=== PATIENT | male | born 1965 | race American Indian/Alaskan Native ===

== ENCOUNTER 2016-07-29 08:57 | Day surgery (SDC) | payer OTHER ==
--- NOTE | 2016-07-25 08:02 | Anesthesia Consultation ---
Anesthesia Consult and Med Hx Date of service: 07/29/16 - Airway Anesthetic Teeth Evaluation: Good ROM Head & Neck: Adequate (prior trach) Mental/Hyoid Distance: Adequate Mallampati Class: Class III Intubation Access Assessment: Possibly Difficult - Pulmonary Exam CTA: Yes - Cardiac Exam Cardiac Exam: RRR - Pre-Operative Health Status ASA Pre-Surgery Classification: ASA3 Proposed Anesthetic Plan: General - Pulmonary Hx Smoking: No Hx Respiratory Symptoms: No (prior trach 03/2016 after angioedema, now closed) Hx Sleep Apnea: No - Cardiovascular System Hx Hypertension: Yes (FOR 10 YRS) - Central Nervous System CVA: Yes (02/16/16 NO DEFICITS) Hx Psychiatric Problems: No - Endocrine Hx Renal Disease: Yes Hx End Stage Renal Disease: Yes (right permacath, HD T/T/S) - Hematic Hx Anemia: Yes - Other Systems Hx Cancer: No - Additional Comments Anesthesia Medical History Comments: REQUESTED PATIENT NOT GET PROPOFOL AND FENTANYL BECAUSE SHE IS NOT SURE IF THESE DRUGS WERE THE CAUSE OF HIS ANGIOEDEMA.
[~2016-07-29 08:57] MED LIST: ANCEF/STERILE WATER 2 GM/20 ML 2 GM/20 ML SYRINGE IV NR; NACL 0.9% 1000 ML 1,000 ML IV SCH; PEPCID IV NR
[2016-07-29] MEDS ORDERED: XYLOCAINE MPF 2% ONE (10:05)
[2016-07-29] MEDS ORDERED: SUBLIMAZE ONE (10:05)
[2016-07-29] MEDS ORDERED: DIPRIVAN 10 MG/ML IV ONE (10:06)
[2016-07-29] MEDS ORDERED: HEPARIN 10,000 UNITS/10 ML ONE (11:04)
[2016-07-29] MEDS ORDERED: RIFADIN ONE (11:04)
[2016-07-29] MEDS ORDERED: MARCAINE 0.5% INFILTRATI ONE ×2 (11:04→12:12)
[2016-07-29] MEDS ORDERED: NACL ONE (11:04)
[2016-07-29] MEDS ORDERED: NACL 0.9% 500 ML 500 ML ONE (11:04)
[2016-07-29 11:09] LABS: Basophils % (Auto) 0.7 % (0.0-1.8); Eosinophils % (Auto) 3.2 % (0.0-4.3); Hematocrit 37.2 % (35.5-45.6); Mean Corpuscular HGB Conc 32 % (32-34); Mean Corpuscular Hemoglobin 28 pg (28-32); Mean Corpuscular Volume 87 fl (84-94); Platelet Count 148 K/mm3 (140-440); Red Blood Count 4.25 M/mm3 (3.65-5.03); White Blood Count 6.4 K/mm3 (4.5-11.0)
[2016-07-29] MEDS ORDERED: NORMODYNE IV ONE ×2 (11:15→11:16)
[2016-07-29 11:17] LABS: BUN/Creatinine Ratio 5.17; Calcium 10.2 mg/dL (8.4-10.2); Chloride 99.2 mmol/L (98-107); Potassium 4.7 mmol/L (3.6-5.0)
[2016-07-29] MEDS ORDERED: DILAUDID IV PRN (11:17)
[2016-07-29] MEDS ORDERED: ZOFRAN IV PRN (11:17)
[2016-07-29] MEDS ORDERED: AMIDATE IV ONE (11:28)
[2016-07-29] MEDS ORDERED: NEO SYNEPHRINE/NS Syringe(OR USE) IV ONE (11:30)
[2016-07-29] MEDS ORDERED: HEPARIN 10,000 UNITS/10 ML IV ONE (12:12)
[2016-07-29] MEDS ORDERED: NACL 0.9% IR ONE (12:12)
[2016-07-29] MEDS ORDERED: ZOFRAN ONE (12:16)
[2016-07-29] MEDS ORDERED: DECADRON ONE (12:16)
[2016-07-29] MEDS ORDERED: BREVIBLOC IV ONE (12:23)
--- NOTE | 2016-07-29 12:43 | Short Stay Summary ---
Short Stay Documentation Date of service: 07/29/16 Narrative H&P: See H&P - History H&P: obtained from office - Allergies and Medications Current Medications: Allergies acetaminophen Adverse Reaction (Verified 07/23/16 09:02) UPSET STOMACH amlodipine Adverse Reaction (Verified 07/23/16 09:02) Angioedema aspirin Adverse Reaction (Verified 07/23/16 09:02) UPSET STOMACH black pepper Adverse Reaction (Verified 07/23/16 09:02) UPSET STOMACH clonidine Adverse Reaction (Verified 07/23/16 09:02) Angioedema Home Medications Medication Instructions Recorded Confirmed Last Taken Type Sevelamer Carbonate [Renvela] 800 mg PO TIDWM 07/23/16 07/29/16 07/28/16 19:00 History hydrALAZINE [Apresoline TAB] 100 mg PO BID 07/29/16 07/29/16 07/29/16 08:00 History Active Medications Famotidine (Pepcid) 20 mg IV PREOP NR Stop: 07/29/16 23:59 Last Admin: 07/29/16 10:59 Dose: 20 mg Hydromorphone HCl (Dilaudid) 0.5 mg IV Q10MIN PRN PRN Reason: Pain , Severe (7-10) Stop: 07/29/16 15:00 Cefazolin Sodium (Ancef/Sterile Water 2 Gm/20 Ml) 2 gm in 20 mls @ 80 mls/hr IV PREOP NR PRN Reason: Protocol Stop: 07/29/16 15:00 Sodium Chloride (Nacl 0.9% 1000 Ml) 1,000 mls @ 42 mls/hr IV DIRECT ANGELLA Last Admin: 07/29/16 10:59 Dose: 42 mls/hr - Brief post op/procedure progress note Date of procedure: 07/29/16 Pre-op diagnosis: End-Stage Renal Disease Post-op diagnosis: same Procedure: Creation of Left Arm Brachiocephalic Arteriovenous Fistula Anesthesia: KANEA Surgeon: AGUSTÍN VALENCIA Estimated blood loss: minimal Pathology: none Condition: stable - Disposition Condition at discharge: Good Disposition: DC-01 TO HOME OR SELFCARE Short Stay Discharge Plan Activity: other (no heavy lifting with left arm) Wound: open to air, keep clean and dry, other (okay to wash the wound with soap and water but do not soak in water) Follow up with: AGUSTÍN VALENCIA MD [Staff Physician] - 14 Days Prescriptions: oxyCODONE [Roxicodone TAB] 5 mg PO Q6HR PRN #40 tablet PRN Reason: Pain
--- NOTE | 2016-07-29 12:45 | Operative Report ---
Operative Report Operative Report: Date of procedure: 07/29/2016 Pre-operative diagnosis: End-Stage Renal Disease Post-operative diagnosis: End-Stage Renal Disease Procedure(s): Creation of Left Brachial Artery to Cephalic Vein Arteriovenous Fistula Surgeon: Ashish Funk MD Set Up / Operator: None Anesthesia: Gen. endotracheal anesthesia EBL: Minimal Counts: Correct Complications: None Condition: Stable Findings: Successful creation of left brachiocephalic arteriovenous fistula with excellent thrill and palpable radial pulse at the completion of the case. Specimen: None Indications: The patient is a 51-year-old male with a history of end-stage renal disease currently on hemodialysis through a right internal jugular permacath. He is in need of long-term access and vein size and demonstrated he was an adequate candidate for creation of a fistula. He was given the risks, benefits, and alternative procedures and consented to procedure. Description of Procedure: The patient was brought to the operating room and laid in supine position after general endotracheal anesthesia was administered the patient was prepped and draped in normal sterile fashion. After anesthetizing the skin a transverse incision was created just below the antecubital crease. Dissection was carried down to the the cephalic vein using sharp dissection. The vein was dissected out both proximally and distally and suture ligated and divided distally. I then ran a 3 Florencio proximally in the vein, to ensure patency of the vein. Then flushed the vein with heparinized saline and flow was controlled with a bulldog clamp. I then dissected out the brachial artery through this incision circumferentially both proximal and distal and controlled the artery with vessel loops. I then placed the vessel loops on tension controlling the flow through the artery and created an arteriotomy using an 11 blade and White scissors. I created an end to side anastomosis between the cephalic vein and brachial artery using a 6-0 Prolene in running fashion. Prior to completing the anastomosis I flushed the artery both proximally and distally and then advanced a 3 Florencio proximally to break the spasm in the artery. I then completed the anastomosis and removed all vessel loops allowing flow into the fistula which had an excellent thrill. I achieved hemostasis with a combination of direct pressure and electrocautery. Once hemostasis was achieved I anesthetized the wound with Marcaine. I then closed the wound in 2 layers and 3-0 Vicryl in a running fashion to close the deep dermal layer and 4- 0 Monocryl in a running fashion in the subcuticular layer. I dressed the wound with Surgicel. The patient tolerated the procedure well, all sponge needle and instrument counts were correct. The patient was taken to recovery in stable condition.
[2016-07-29] MEDS ORDERED: NORMODYNE IV PRN (12:55)
[2016-07-29 18:36] VITALS: BP 150/100
== END 2016-07-29 15:50 | disposition home or self-care (01) ==
LOC: OR 08:57
PROVIDERS: ATTEND Surgery Vascular Surgery
DX: I12.0 Hypertensive chronic kidney disease with stage 5 chronic kidney disease or end stage renal disease (principal); N18.6 End stage renal disease; D64.9 Anemia, unspecified; Z99.2 Dependence on renal dialysis; Z86.73 Personal history of transient ischemic attack (TIA), and cerebral infarction without residual deficits; Z88.8 Allergy status to other drugs, medicaments and biological substances; Z91.018 Allergy to other foods; Z79.899 Other long term (current) drug therapy
CPT/HCPCS: 36415; 36821; 80048; 85025; C1757; J0690; J1100; J1170; J1644; J2370; J2405; J7030; J7040; J2704; J3010; J3490